=== PATIENT | female | born 1995 | race Caucasian/White ===

== ENCOUNTER 2021-10-20 20:28 | Emergency (ER) | payer SELFPAY ==
--- NOTE | 2021-10-20 23:47 | NUR ---
PATIENT LEFT WITHOUT BEING SEEN.
== END 2021-10-20 23:48 | disposition left against medical advice (07) ==
LOC: ER 20:28
DX: Z53.21 Procedure and treatment not carried out due to patient leaving prior to being seen by health care provider (principal)